=== PATIENT | female | born 1980 | race Caucasian/White ===

== ENCOUNTER 2017-07-31 15:56 | Emergency (ER) | payer MEDICAID, OTHER ==
[~2017-07-31] VITALS: Ht 167.6 cm; Wt 80.0 kg
[~2017-07-31 15:56] MED LIST: FEXO180 PO; LEVO.15 PO; OXYC15TA3 PO
[2017-07-31 16:01] VITALS: BP 183/105; PULSE 133; RESP 16; TEMP 99.2; O2SAT 100
[2017-07-31] MEDS ORDERED: SODIUM CHLOR 0.9% 1000 ML INJ 1,000 ML IV ONE ×2 (16:14→18:15)
[2017-07-31] MEDS ORDERED: ONDANSETRON HCL 4 MG/2 ML VIAL IV PUSH ONE (16:15)
[2017-07-31] MEDS ORDERED: SODIUM CHLORIDE 0.9% FLUSH 10 ML FLUSH IVF PRN (16:15)
[2017-07-31] MEDS ORDERED: KETOROLAC TROMETHAMINE 30 MG/ML (IVP) VIAL IV PUSH ONE (16:15)
--- NOTE | 2017-07-31 16:20 | PD ---
HPI Chief Complaint: Complaint Time Seen by Provider: 16:13 Travel History International Travel<30 days: No Contact w/Intl Traveler<30days: No Traveled to known affect area: No History of Present Illness HPI Patient is 36-year-old female presenting to the emergency department for evaluation of urinary retention, bilateral flank pain, nausea. Patient reports a history of kidney stones diagnosed in April. She reports having a lithotripsy after that with Dr. Travis. She states for the last 24 hours she has been unable to void, she has been utilizing straight cath to empty her bladder. She reports a 7 out of 10 pain in her bilateral flanks and back, she reports abdominal distention. Patient reports nausea with no vomiting, no fevers. Patient states she has had to straight cath on and off since April. Symptom onset was gradual, symptoms are moderate in nature, there are no alleviating factors. Patient has a history of hepatitis C, hypothyroidism, depression anxiety, ADHD and hyperlipidemia. PFSH Past Medical History ADHD: Yes Asthma: Yes ("CHILDHOOD ASTHMA"- USES INHALER PRN-VENTOLIN) Anxiety: Yes Depression: Yes High Cholesterol: Yes Diabetes: No Diminished Hearing: No Hypertension: No Kidney Stones: Yes Thyroid Disease: Yes (HYPOTHYROIDISM) Past Surgical History Genitourinary Surgery: Yes (Lithotripsy) Oral Surgery: Yes (WISDOM TEETH; EXCISION SOFT MASS; EXPLORATION OF GLAND) Social History Alcohol Use: No Tobacco Use: No Substance Use: No (History of IV drug use) Allergies-Medications (Allergen,Severity, Reaction): Coded Allergies: No Known Allergies (Verified , 05/13/10) Reported Meds & Prescriptions Reported Meds & Active Scripts Active Reported Levothyroxine (Levothyroxine Sodium) 200 Mcg Tab 200 Mcg PO DAILY Zofran (Ondansetron HCl) 4 Mg Tab 4 Mg PO Q6HR PRN Fioricet (Cabsxcnhsk-Qscmlsbnhqncm-Phmgtukp) 50-300-40 Mg Cap 1-2 Cap PO Q6H PRN Atorvastatin (Atorvastatin Calcium) 40 Mg Tab 40 Mg PO DAILY Adderall (Amphetamine-Dextroamphetamine) 30 Mg Tab 30 Mg PO BID Avoid late evening doses. Space doses at least 4 to 6 hours if more than once/day dosing. Xanax (Alprazolam) 0.5 Mg Tab 0.5 Mg PO BID PRN Lamictal (Lamotrigine) 100 Mg Tab 100 Mg PO DAILY Lexapro (Escitalopram Oxalate) 10 Mg Tab 10 Mg PO DAILY Mavyret (Glecaprevir-Pibrentasvir) 100-40 Mg Tab 3 Tab PO DAILY Review of Systems Except as stated in HPI: all other systems reviewed are Neg General / Constitutional: No: Fever HENT: No: Headaches Cardiovascular: No: Chest Pain or Discomfort Respiratory: No: Shortness of Breath Gastrointestinal: Positive: Nausea, No: Vomiting, Abdominal Pain Genitourinary: Positive: Dysuria, Decreased Urinary Output, Oliguria, Flank Pain Musculoskeletal: Positive: Myalgias, Pain Neurologic: No: Weakness Physical Exam Narrative GENERAL: Well-developed, well-nourished, alert female. Presenting in no acute distress. SKIN: Warm and dry. HEAD: Atraumatic. Normocephalic. EYES: Pupils equal and round. No scleral icterus. No injection or drainage. ENT: No nasal bleeding or discharge. Mucous membranes pink and moist. NECK: Trachea midline. No JVD. CARDIOVASCULAR: Tachycardic RESPIRATORY: No accessory muscle use. Clear to auscultation. Breath sounds equal bilaterally. GASTROINTESTINAL: Abdomen soft, non-tender, nondistended. Hepatic and splenic margins not palpable. Positive bowel sounds, no rebound, no guarding MUSCULOSKELETAL: Extremities without clubbing, cyanosis, or edema. No obvious deformities. Positive CVAT bilaterally NEUROLOGICAL: Awake and alert. No obvious cranial nerve deficits. Motor grossly within normal limits. Five out of 5 muscle strength in the arms and legs. Normal speech. PSYCHIATRIC: Appropriate mood and affect; insight and judgment normal. Data Data Last Documented VS Vital Signs Date Time Temp Pulse Resp B/P (MAP) Pulse Ox O2 Delivery O2 Flow Rate FiO2 07/31/17 20:15 111 22 169/84 (112) 97 Room Air 07/31/17 16:01 99.2 Orders Orders Complete Blood Count With Diff (07/31/17 16:14) Comprehensive Metabolic Panel (07/31/17 16:14) Urinalysis - C+S If Indicated (07/31/17 16:14) Ct Abd/Pel W/O Iv Contrast (07/31/17 16:14) Ecg Monitoring (07/31/17 16:14) Iv Access Insert/Monitor (07/31/17 16:14) Sodium Chloride 0.9% Flush (Ns Flush) (07/31/17 16:15) Sodium Chlor 0.9% 1000 Ml Inj (Ns 1000 M (07/31/17 16:14) Ketorolac Inj (Toradol Inj) (07/31/17 16:15) Ondansetron Inj (Zofran Inj) (07/31/17 16:15) Urinary Catheter Insert/Apply (07/31/17 16:15) Urine Culture (07/31/17 16:30) Ceftriaxone Inj (Rocephin Inj) (07/31/17 18:00) Tamsulosin (Flomax) (07/31/17 18:00) Sodium Chlor 0.9% 1000 Ml Inj (Ns 1000 M (07/31/17 18:15) Morphine Inj (Morphine Inj) (07/31/17 18:15) Labetalol Inj (Trandate Inj) (07/31/17 20:00) Diphenhydramine Inj (Benadryl Inj) (07/31/17 20:00) Labs Laboratory Tests Test 07/31/17 16:30 07/31/17 17:45 White Blood Count 11.6 TH/MM3 Red Blood Count 5.33 MIL/MM3 Hemoglobin 16.9 GM/DL Hematocrit 48.1 % Mean Corpuscular Volume 90.3 FL Mean Corpuscular Hemoglobin 31.7 PG Mean Corpuscular Hemoglobin Concent 35.1 % Red Cell Distribution Width 12.8 % Platelet Count 373 TH/MM3 Mean Platelet Volume 8.3 FL Neutrophils (%) (Auto) 75.4 % Lymphocytes (%) (Auto) 18.8 % Monocytes (%) (Auto) 5.0 % Eosinophils (%) (Auto) 0.1 % Basophils (%) (Auto) 0.7 % Neutrophils # (Auto) 8.7 TH/MM3 Lymphocytes # (Auto) 2.2 TH/MM3 Monocytes # (Auto) 0.6 TH/MM3 Eosinophils # (Auto) 0.0 TH/MM3 Basophils # (Auto) 0.1 TH/MM3 CBC Comment DIFF FINAL Differential Comment Urine Color YELLOW Urine Turbidity HAZY Urine pH 6.5 Urine Specific [place] 1.029 Urine Protein 300 mg/dL Urine Glucose (UA) NEG mg/dL Urine Ketones NEG mg/dL Urine Occult Blood SMALL Urine Nitrite NEG Urine Bilirubin NEG Urine Urobilinogen 2.0 MG/DL Urine Leukocyte Esterase MOD Urine RBC 67 /hpf Urine WBC 31 /hpf Urine Squamous Epithelial Cells 2 /hpf Urine Calcium Oxalate Crystals FEW /hpf Urine Bacteria OCC /hpf Urine Hyaline Casts 7 /lpf Urine Mucus MANY /lpf Microscopic Urinalysis Comment CULTURE INDICATED Blood Urea Nitrogen 9 MG/DL Creatinine 0.79 MG/DL Random Glucose 103 MG/DL Total Protein 8.5 GM/DL Albumin 4.4 GM/DL Calcium Level 9.0 MG/DL Alkaline Phosphatase 90 U/L Aspartate Amino Transf (AST/SGOT) 17 U/L Alanine Aminotransferase (ALT/SGPT) 26 U/L Total Bilirubin 0.6 MG/DL Sodium Level 138 MEQ/L Potassium Level 4.0 MEQ/L Chloride Level 105 MEQ/L Carbon Dioxide Level 27.6 MEQ/L Anion Gap 5 MEQ/L Estimat Glomerular Filtration Rate 83 ML/MIN MDM Medical Decision Making Medical Screen Exam Complete: Yes Emergency Medical Condition: Yes Interpretation(s) Laboratory Tests Test 07/31/17 16:30 07/31/17 17:45 White Blood Count 11.6 TH/MM3 Red Blood Count 5.33 MIL/MM3 Hemoglobin 16.9 GM/DL Hematocrit 48.1 % Mean Corpuscular Volume 90.3 FL Mean Corpuscular Hemoglobin 31.7 PG Mean Corpuscular Hemoglobin Concent 35.1 % Red Cell Distribution Width 12.8 % Platelet Count 373 TH/MM3 Mean Platelet Volume 8.3 FL Neutrophils (%) (Auto) 75.4 % Lymphocytes (%) (Auto) 18.8 % Monocytes (%) (Auto) 5.0 % Eosinophils (%) (Auto) 0.1 % Basophils (%) (Auto) 0.7 % Neutrophils # (Auto) 8.7 TH/MM3 Lymphocytes # (Auto) 2.2 TH/MM3 Monocytes # (Auto) 0.6 TH/MM3 Eosinophils # (Auto) 0.0 TH/MM3 Basophils # (Auto) 0.1 TH/MM3 CBC Comment DIFF FINAL Differential Comment Urine Color YELLOW Urine Turbidity HAZY Urine pH 6.5 Urine Specific [place] 1.029 Urine Protein 300 mg/dL Urine Glucose (UA) NEG mg/dL Urine Ketones NEG mg/dL Urine Occult Blood SMALL Urine Nitrite NEG Urine Bilirubin NEG Urine Urobilinogen 2.0 MG/DL Urine Leukocyte Esterase MOD Urine RBC 67 /hpf Urine WBC 31 /hpf Urine Squamous Epithelial Cells 2 /hpf Urine Calcium Oxalate Crystals FEW /hpf Urine Bacteria OCC /hpf Urine Hyaline Casts 7 /lpf Urine Mucus MANY /lpf Microscopic Urinalysis Comment CULTURE INDICATED Blood Urea Nitrogen 9 MG/DL Creatinine 0.79 MG/DL Random Glucose 103 MG/DL Total Protein 8.5 GM/DL Albumin 4.4 GM/DL Calcium Level 9.0 MG/DL Alkaline Phosphatase 90 U/L Aspartate Amino Transf (AST/SGOT) 17 U/L Alanine Aminotransferase (ALT/SGPT) 26 U/L Total Bilirubin 0.6 MG/DL Sodium Level 138 MEQ/L Potassium Level 4.0 MEQ/L Chloride Level 105 MEQ/L Carbon Dioxide Level 27.6 MEQ/L Anion Gap 5 MEQ/L Estimat Glomerular Filtration Rate 83 ML/MIN Vital Signs Date Time Temp Pulse Resp B/P (MAP) Pulse Ox O2 Delivery O2 Flow Rate FiO2 07/31/17 16:01 99.2 133 16 183/105 (131) 100 Differential Diagnosis Urinary obstruction versus kidney stones versus UTI versus metabolic abnormality versus other Narrative Course Patient's 36-year-old female that presented to emergency department for evaluation of kidney stones. Patient has a history of the same, she was previously seen and evaluated in [facility]. Patient is mildly hypertensive and tachycardic on arrival. Labs and imaging ordered and pending. Zofran and Toradol ordered for pain. CT shows left proximal ureteral calculus with mild hydronephrosis. Nonobstructing right renal calculi. CBC with a white count 11.6, chemistry is unremarkable urinalysis is consistent with urinary tract infection. Reflex urine cultures pending. Patient was given Rocephin 1 g IV 1 dose, she has received a total of 3 L of IV fluids. Patient was given dose of Flomax. Mother is at bedside, she is concerned that patient is drug seeking. Patient initially stated that she was cleaning however she reported to RN that she is using IV drugs still. Her heart rate has trended down, however she has become more hypertensive. Patient will be given Benadryl, will reassess and if needed. Labetalol has been ordered. Blood pressure and heart rate has normalized. Patient's mother was asked to leave and wait in the waiting room, she was exacerbating patient's anxiety. Leg bag will be left in place due to patient's need to repeatedly self catheter which is likely contributing to urinary tract infections. Patient is encouraged to follow-up with her urologist in 1-2 days. She was encouraged to return to emergency department for any new or worsening symptoms. Patient is stable for discharge. Diagnosis Primary Impression: Kidney stone Additional Impressions: UTI (urinary tract infection) Qualified Codes: N39.0 - Urinary tract infection, site not specified; R31.9 - Hematuria, unspecified Urinary retention Referrals: [facility] Primary Care Physician 2 days [facility] Behavioral Urologist 2 days Patient Instructions: General Instructions, Kidney Stones (ED), Narcotic given in the ED, Urinary Leg Bag (GEN), Urinary Tract Infection in Women (ED) Additional Instructions: Follow-up with your urologist Follow-up with her primary doctor Complete full course of antibiotics as prescribed Increased oral fluid intake Return to emergency department for any new or worsening symptoms Med/Other Pt SpecificInfo: Prescription(s) given Scripts Tamsulosin (Flomax) 0.4 Mg Cap 0.4 MG PO HS for Manage Prostate Problems, #14 CAP 0 Refills Prov: Della Matthews 07/31/17 Ketorolac (Ketorolac) 10 Mg Tab 10 MG PO TID Y for Pain Management, #21 TAB 0 Refills Prov: Della Matthews 07/31/17 Nitrofurantoin Macrocrystal (Macrodantin) 100 Mg Cap 100 MG PO BID for 7 Days, #14 CAP 0 Refills Prov: Della Matthews 07/31/17 Disposition: 01 DISCHARGE HOME Condition: Stable Della Matthews Jul 31, 2017 16:20
[2017-07-31] MEDS ORDERED: ALPR.5 PO (16:38)
[2017-07-31] MEDS ORDERED: LAMO100 PO (16:38)
[2017-07-31] MEDS ORDERED: ZOFR4TAB PO (16:38)
[2017-07-31] MEDS ORDERED: LEVO200T4 PO (16:38)
[2017-07-31] MEDS ORDERED: ATOR40TA16 PO (16:38)
[2017-07-31] MEDS ORDERED: BUTA1CAP PO (16:38)
[2017-07-31] MEDS ORDERED: GLEC1TAB PO (16:38)
[2017-07-31] MEDS ORDERED: ADDE30TA PO (16:38)
[2017-07-31] MEDS ORDERED: LEXA10TA PO (16:38)
[2017-07-31 17:08] LABS: AUTOMATED NEUTROPHIL # 8.7 TH/MM3 (1.8-7.7); BASOPHIL # 0.1 TH/MM3 (0-0.2); BASOPHIL % 0.7 % (0.0-2.0); EOSINOPHIL % 0.1 % (0.0-4.0); HEMATOCRIT 48.1 % (35.0-46.0); HEMOGLOBIN 16.9 GM/DL (11.6-15.3); LYMPH % 18.8 % (9.0-44.0); LYMPHOCYTE # 2.2 TH/MM3 (1.0-4.8); MEAN CELL VOLUME 90.3 FL (80.0-100.0); MEAN CORPUSCULAR HEMOGLOBIN 31.7 PG (27.0-34.0); MEAN CORPUSCULAR HGB CONC 35.1 % (32.0-36.0); MEAN PLATELET VOLUME 8.3 FL (7.0-11.0); MONOCYTE # 0.6 TH/MM3 (0-0.9); NEUT % 75.4 % (16.0-70.0); PLATELET COUNT 373 TH/MM3 (150-450); RED BLOOD COUNT 5.33 MIL/MM3 (4.00-5.30); RED CELL DISTRIBUTION WIDTH 12.8 % (11.6-17.2); WHITE BLOOD COUNT 11.6 TH/MM3 (4.0-11.0)
[2017-07-31 17:34] LABS: BACTERIA, URINE OCC /hpf; BLOOD, URINE SMALL (NEG); CALCIUM OXALATE CRYSTALS,URINE FEW /hpf; GLUCOSE,URINE NEG (NEG); HYALINE CAST, URINE 7 /lpf (RARE); KETONE, URINE NEG (NEG); MUCUS URINE MANY /lpf (OCC); NITRITE,URINE NEG (NEG); PH, URINE 6.5 (5.0-8.5); SQUAMOUS EPITHELIAL CELL URINE 2 /hpf (0-5); URINE COLOR YELLOW (YELLW/STRAW); URINE LEUKOCYTE ESTERASE MOD (NEG)
[2017-07-31 17:35] LABS: BILIRUBIN, URINE NEG (NEG)
--- NOTE | 2017-07-31 17:56 | RADRPT ---
EXAM DATE/TIME: 07/31/2017 17:36 [facility] COMPARISON: No previous studies available for comparison. INDICATIONS : Bilateral flank pain, difficulty urinating. ORAL CONTRAST: No oral contrast ingested. RADIATION DOSE: 8.52 CTDIvol (mGy) MEDICAL HISTORY : Renal calculi. Hypothyroidism. IV drug abuse, asthma. SURGICAL HISTORY : Lithotripsy. ENCOUNTER: Initial ACUITY: 2 days PAIN SCALE: 7/10 LOCATION: Bilateral flank TECHNIQUE: Volumetric scanning of the abdomen and pelvis was performed. Using automated exposure control and ad justment of the mA and/or kV according to patient size, radiation dose was kept as low as reasonably achievable to obtain optimal diagnostic quality images. DICOM format image data is available electro nically for review and comparison. FINDINGS: Patient is status post cholecystectomy. Spleen, pancreas, adrenals are unremarkable. Numerous right-s ided renal calculi are present including a 4.6 mm upper pole calculus, midpole simple 7 mm calculus, nonobstructing. There is no hydronephrosis on the right. On the left, there is mild dilatation of the intrarenal collecting system secondary to a 4.4 mm stone on image 54 at the ureteropelvic junction. Flores catheter within the urinary bladder. Uterus and ovaries are unremarkable. CONCLUSION: 1. Left proximal ureteral calculus with mild hydronephrosis. 2. Nonobstructing right renal calculi. Dave Ospina MD on July 31, 2017 at 17:52 Board Certified Radiologist. This report was verified electronically.
[2017-07-31 18:00] VITALS: BP 174/97; PULSE 119; RESP 20; O2SAT 99
[2017-07-31] MEDS ORDERED: cefTRIAXone INJ 1,000 MG in SODIUM CHLORIDE 0.9% INJ 100 ML IV ONE (18:00)
[2017-07-31] MEDS ORDERED: TAMSULOSIN HCL 0.4 MG CAP PO ONE (18:00)
[2017-07-31] MEDS ORDERED: MORPHINE SULFATE 4 MG/ML INJ IV PUSH ONE (18:15)
[2017-07-31 18:49] LABS: ALBUMIN 4.4 GM/DL (3.4-5.0); ALKALINE PHOSPHATASE 90 U/L (45-117); ALT (GPT) 26 U/L (10-53); AST (GOT) 17 U/L (15-37); BLOOD UREA NITROGEN 9 MG/DL (7-18); CREATININE 0.79 MG/DL (0.50-1.00); GLOMERULAR FILTRATION RATE 83 ML/MIN (>89); GLUCOSE,RANDOM 103 MG/DL (74-106); SODIUM (NA) 138 MEQ/L (136-145); TOTAL BILIRUBIN ADULT 0.6 MG/DL (0.2-1.0); TOTAL PROTEIN 8.5 GM/DL (6.4-8.2)
[2017-07-31 18:50] LABS: BICARBONATE 27.6 MEQ/L (21.0-32.0); CHLORIDE 105 MEQ/L (98-107)
[2017-07-31 19:36] VITALS: BP 199/83; PULSE 118; O2SAT 97
[2017-07-31] MEDS ORDERED: diphenhydrAMINE HCL 50 MG/ML VIAL IV PUSH ONE (20:00)
[2017-07-31] MEDS ORDERED: LABETALOL HCL 100 MG/20 ML VIAL IV PUSH ONE (20:00)
[2017-07-31 20:15] VITALS: BP 169/84; PULSE 111; RESP 22; O2SAT 97
[2017-07-31] MEDS ORDERED: MACR100C3 PO (20:26)
[2017-07-31] MEDS ORDERED: TAMS5CAP PO (20:26)
[2017-07-31] MEDS ORDERED: KETO10 PO (20:26)
== END 2017-07-31 21:22 | disposition home or self-care (01) ==
LOC: NEPE 15:56
DX: N13.2 Hydronephrosis with renal and ureteral calculous obstruction (principal); N39.0 Urinary tract infection, site not specified; E03.9 Hypothyroidism, unspecified; E78.00 Pure hypercholesterolemia, unspecified; F90.9 Attention-deficit hyperactivity disorder, unspecified type; F32.9 Major depressive disorder, single episode, unspecified
CPT/HCPCS: 51702; 74176; 80053; 81001; 85025; 87077; 87086; 87186; 96361; 96365; 96375; 99284; J0696; J1200; J1885; J2270; J2405; J7030

== ENCOUNTER → 2017-08-10 | Day surgery (SDC) | payer OTHER ==
[~2017-08-10] VITALS: Ht 160 cm; Wt 85.7 kg
[~2017-08-10] MED LIST changes: +*morphine SULFATE 10 MG/ML PERIprocedure ONLY ONE; +ADDE30TA PO; +ALPR.5 PO; +ATOR40TA16 PO; +BUTA1CAP PO; +CHLORHEXIDINE GLUCONATE 2 % 1 PACK (2 CLOTHS) TOPICAL PRN; +DEXAMETHASONE SOD PHOS 4 MG/ML VIAL IV ONE; +DO NOT ADM ANY ANTICOAGULANT DRUGS PRN; +FAMOTIDINE 20 MG/2 ML VIAL ONE; -FEXO180 PO; +GLEC1TAB PO; +KETO10 PO; +LACTATED RINGER'S 1000 ML IV PRN; +LAMO100 PO; -LEVO.15 PO; +LEVO200T4 PO; +LEXA10TA PO; +LIDOCAINE HCL 1% PF 5 ML SYRINGE OTHER ONE; +LORazepam 2 MG/ML VIAL IV ONE; +LORazepam 2 MG/ML VIAL ONE; +MACR100C3 PO; +METOPROLOL TARTRATE 25 MG TAB PO PRN; +MIDAZOLAM HCL 2 MG/2 ML VIAL ONE; +ONDANSETRON HCL 4 MG/2 ML VIAL IV ONE; +ONDANSETRON HCL 4 MG/2 ML VIAL IV PUSH PRN; -OXYC15TA3 PO; +PERC5TAB12 PO; +PHENYLEPH/NS 1000 MCG/10 ML SYR IV ONE; +POVIDONE IODINE 5% (ANTISEPSIS KIT) 4 APPLICATIONS EACH NARE PRN; +PROPOFOL 200 MG/20 ML AMP IV ONE; +SODIUM CHLORID 0.9% 500 ML IV PRN; +TAMS0.4C4 PO; +TAMS5CAP PO; +ZOFR4TAB PO; +ePHEDrine/NS 25 MG/5 ML SYRINGE IV ONE; +oxyCODONE/ACETAMINOPHEN 5 MG/325 MG TAB PO PRN
[2017-08-10 06:52] LABS: BASOPHIL # 0.1 TH/MM3 (0-0.2); BASOPHIL % 0.8 % (0.0-2.0); EOSINOPHIL # 0.4 TH/MM3 (0-0.4); EOSINOPHIL % 4.4 % (0.0-4.0); HEMATOCRIT 42.5 % (35.0-46.0); LYMPH % 38.6 % (9.0-44.0); LYMPHOCYTE # 3.3 TH/MM3 (1.0-4.8); MEAN CELL VOLUME 90.3 FL (80.0-100.0); MEAN CORPUSCULAR HEMOGLOBIN 31.9 PG (27.0-34.0); MEAN CORPUSCULAR HGB CONC 35.3 % (32.0-36.0); MEAN PLATELET VOLUME 7.7 FL (7.0-11.0); MONO % 9.4 % (0.0-8.0); MONOCYTE # 0.8 TH/MM3 (0-0.9); NEUT % 46.8 % (16.0-70.0); PLATELET COUNT 340 TH/MM3 (150-450); RED CELL DISTRIBUTION WIDTH 12.8 % (11.6-17.2); WHITE BLOOD COUNT 8.5 TH/MM3 (4.0-11.0)
--- NOTE | 2017-08-10 07:07 | RADRPT ---
EXAM DATE/TIME: 08/10/2017 06:36 [facility] COMPARISON: CT ABDOMEN & PELVIS W/O CONTRAST, July 31, 2017, 17:36. INDICATIONS : Pre op for lithotripsy. MEDICAL HISTORY : Renal calculi. SURGICAL HISTORY : Cholecystectomy. ENCOUNTER: Initial ACUITY: 1 day PAIN SCORE: 0/10 LOCATION: Left abdomen. FINDINGS: Calculus identified in the proximal left ureter cannot be radiographically visualized. Small calculi in the lower pole the right kidney really seen. There are graft her no discrete tract w as seen along the course of ureters within the pelvis or centrally over the bladder. CONCLUSION: Proximal left ureteral calculus not clearly visualized. Right nephrolithiasis. Dutch Dixon MD on August 10, 2017 at 7:02 Board Certified Radiologist. This report was verified electronically.
--- NOTE | 2017-08-10 08:39 | PD.OP ---
Operative Report Date of Surgery: Aug 10, 2017 Preoperative Diagnosis: (1) Ureteral calculus, left Postoperative Diagnosis: (1) Ureteral calculus, left Procedure: Extracorporeal shockwave lithotripsy left ureteral calculus Anesthesia: General Surgeon: Roosevelt Jay Poll Watcher(s): None Operation and Findings: Indication for procedure: Case of a pleasant 36-year-old female with a left proximal ureteral calculus measuring approximately 6 mm who presents now for extracorporeal shockwave lithotripsy. Operative procedure in detail: Patient was brought to the operating room suite placed supine on the lithotripsy table. She was then placed under general anesthesia. After an appropriate timeout was undertaken I proceeded with localizing the patient's left proximal ureteral stone under fluoroscopy. She then underwent extracorporeal shockwave lithotripsy utilizing the mobile delta lithotripsy unit. The patient received a total of 3000 shocks with a maximum power level setting of 6. At the conclusion of the procedure the stone spread out consistent with fragmentation. The patient tolerated the procedure without complications and was transferred to the PACU in satisfactory condition. Roosevelt Jay MD Aug 10, 2017 08:39
[2017-08-10 10:15] VITALS: BP 113/74; PULSE 88; RESP 20; TEMP 98; O2SAT 98
== END | disposition home or self-care (01) ==
LOC: HSDC 05:46
PROVIDERS: ATTEND Urology
DX: N20.1 Calculus of ureter (principal)
CPT/HCPCS: 00873; 50590; 74018; 85025; J1100; J2060; J2250; J2270; J2370; J2405; J3010

== ENCOUNTER 2017-08-25 15:21 | Inpatient (IN) | payer OTHER ==
[~2017-08-25] VITALS: Ht 160 cm; Wt 80.0 kg
[2017-08-25] VITALS (7 sets, daily range): BP systolic 117–150; BP diastolic 72–95; PULSE 96–128; RESP 18–21; TEMP 99; O2SAT 96–99
[~2017-08-25 15:21] MED LIST changes: -*morphine SULFATE 10 MG/ML PERIprocedure ONLY ONE; -CHLORHEXIDINE GLUCONATE 2 % 1 PACK (2 CLOTHS) TOPICAL PRN; -DEXAMETHASONE SOD PHOS 4 MG/ML VIAL IV ONE; -DO NOT ADM ANY ANTICOAGULANT DRUGS PRN; -FAMOTIDINE 20 MG/2 ML VIAL ONE; -KETO10 PO; -LACTATED RINGER'S 1000 ML IV PRN; -LIDOCAINE HCL 1% PF 5 ML SYRINGE OTHER ONE; -LORazepam 2 MG/ML VIAL IV ONE; -LORazepam 2 MG/ML VIAL ONE; -MACR100C3 PO; -METOPROLOL TARTRATE 25 MG TAB PO PRN; -MIDAZOLAM HCL 2 MG/2 ML VIAL ONE; -ONDANSETRON HCL 4 MG/2 ML VIAL IV ONE; -ONDANSETRON HCL 4 MG/2 ML VIAL IV PUSH PRN; -PHENYLEPH/NS 1000 MCG/10 ML SYR IV ONE; -POVIDONE IODINE 5% (ANTISEPSIS KIT) 4 APPLICATIONS EACH NARE PRN; -PROPOFOL 200 MG/20 ML AMP IV ONE; -SODIUM CHLORID 0.9% 500 ML IV PRN; -ePHEDrine/NS 25 MG/5 ML SYRINGE IV ONE; -oxyCODONE/ACETAMINOPHEN 5 MG/325 MG TAB PO PRN
[2017-08-25] MEDS ORDERED: DILTIAZEM HCL 50 MG/10 ML VIAL IV ONE (15:45)
[2017-08-25] MEDS ORDERED: SODIUM CHLORID 0.9% 500 ML INJ 500 ML IV ONE (15:45)
[2017-08-25] MEDS ORDERED: ASPIRIN 325 MG TAB PO ONE (15:45)
--- NOTE | 2017-08-25 15:58 | RADRPT ---
EXAM DATE/TIME: 08/25/2017 15:44 [facility] COMPARISON: No previous studies available for comparison. INDICATIONS : Chest pain and shortness of breath. MEDICAL HISTORY : Renal calculi SURGICAL HISTORY : Cholecystectomy. ENCOUNTER: Initial ACUITY: 1 day PAIN SCORE: 10/10 LOCATION: Bilateral chest FINDINGS: A single view of the chest demonstrates the lungs to be symmetrically aerated without evidence of mas s, infiltrate or effusion. The cardiomediastinal contours are unremarkable. Osseous structures are intact. CONCLUSION: No acute cardiopulmonary disease. José Antonio Silvestre MD on August 25, 2017 at 15:56 Board Certified Radiologist. This report was verified electronically.
--- NOTE | 2017-08-25 15:59 | PD ---
HPI Chief Complaint: Cardiac Complaint Time Seen by Provider: 15:32 Travel History International Travel<30 days: No Contact w/Intl Traveler<30days: No Traveled to known affect area: No History of Present Illness HPI 36-year-old female that presents to the ED for evaluation of elevated heart rate. Per patient she has had sensation of chest pain and pressure with elevated heart rate since today. Per patient she fell diaphoretic. Per patient she had a recent procedure done to remove a kidney stone about a week ago by Dr. Jay. Per patient she is been having pain from it. She apparently was at work today when she developed episode of chest discomfort as well as palpitations. She states that he felt more like a pressure. She felt diaphoretic. She was evaluated by her nurse practitioner who works with her and did an EKG and recognized that she had atrial fibrillation RVR in the 150s 160s. She was given diltiazem with some improvement. She was brought here for evaluation. Per patient she has been having pain on her flank secondary to the recent surgery (lithotripsy). She states that currently she has pressure on her chest. She denies any fevers chills or sweats before. Per patient she self caths when she feels that she has urinary retention and she is concerned she might have a UTI. She denies any history of A. fib in the past. No other medical issues. Pain per patient is 7 out of 10. PFSH Past Medical History ADHD: Yes Asthma: Yes ("CHILDHOOD ASTHMA"- USES INHALER PRN-VENTOLIN) Anxiety: Yes Depression: Yes High Cholesterol: Yes Diabetes: No Diminished Hearing: No Gastrointestinal Disorders: Yes (hep c) Genitourinary: No Hiatal Hernia: No Hypertension: No Kidney Stones: Yes Psychiatric: Yes (mood disorder) Thyroid Disease: Yes (HYPOTHYROIDISM) ?: Not Past Surgical History Abdominal Surgery: Yes (cholecystectomy) Genitourinary Surgery: Yes (Lithotripsy) Gynecologic Surgery: Yes (novasure) Neurologic Surgery: Yes (c3-c4 discectomy) Oral Surgery: Yes (WISDOM TEETH; EXCISION SOFT MASS; EXPLORATION OF GLAND) Other Surgery: Yes Social History Alcohol Use: Yes (OCC) Tobacco Use: Yes Substance Use: No (History of IV drug use) Allergies-Medications (Allergen,Severity, Reaction): Coded Allergies: No Known Allergies (Verified Allergy, Unknown, 08/10/17) Reported Meds & Prescriptions Reported Meds & Active Scripts Active Percocet (Oxycodone-Acetaminophen) 5-325 mg Tab 1-2 Tab PO Q6H PRN Tamsulosin (Tamsulosin HCl) 0.4 Mg Cap 0.4 Mg PO DAILY Flomax (Tamsulosin HCl) 0.4 Mg Cap 0.4 Mg PO HS Reported Suboxone Sublingual Film (Buprenorphine-Naloxone Sublingual Film) 2-0.5 Mg Film Unknown Dose SL Unique ID number required: Adderall (Amphetamine-Dextroamphetamine) 30 Mg Tab 30 Mg PO DAILY Avoid late evening doses. Space doses at least 4 to 6 hours if more than once/day dosing. Levothyroxine (Levothyroxine Sodium) 200 Mcg Tab 200 Mcg PO DAILY Zofran (Ondansetron HCl) 4 Mg Tab 4 Mg PO Q6HR PRN Fioricet (Vsaoatpjuz-Gjyoematbyuun-Exhrcekx) 50-300-40 Mg Cap 1-2 Cap PO Q6H PRN Atorvastatin (Atorvastatin Calcium) 40 Mg Tab 40 Mg PO DAILY Xanax (Alprazolam) 0.5 Mg Tab 0.5 Mg PO BID PRN Lamictal (Lamotrigine) 100 Mg Tab 100 Mg PO DAILY Lexapro (Escitalopram Oxalate) 10 Mg Tab 10 Mg PO DAILY Mavyret (Glecaprevir-Pibrentasvir) 100-40 Mg Tab 3 Tab PO DAILY Review of Systems Except as stated in HPI: all other systems reviewed are Neg Physical Exam Narrative GENERAL: SKIN: Warm and dry. HEAD: Atraumatic. Normocephalic. EYES: Pupils equal and round. No scleral icterus. No injection or drainage. ENT: No nasal bleeding or discharge. Mucous membranes pink and moist. Tongue is midline. No uvula deviation. NECK: Trachea midline. No JVD. CARDIOVASCULAR: Irregular tachycardic rate and rhythm. No murmurs, S3, S4. RESPIRATORY: No accessory muscle use. Clear to auscultation. Breath sounds equal bilaterally. GASTROINTESTINAL: Abdomen soft, non-tender, nondistended. Hepatic and splenic margins not palpable. MUSCULOSKELETAL: Extremities without clubbing, cyanosis, or edema. No obvious deformities. Full range of motion of the upper and lower extremities bilaterally. 2+ pulses bilaterally. NEUROLOGICAL: Awake and alert. No obvious cranial nerve deficits. Motor grossly within normal limits. Five out of 5 muscle strength in the arms and legs. Normal speech. PSYCHIATRIC: Appropriate mood and affect; insight and judgment normal. Data Data Last Documented VS Vital Signs Date Time Temp Pulse Resp B/P (MAP) Pulse Ox O2 Delivery O2 Flow Rate FiO2 08/25/17 18:01 108 19 139/72 (94) 96 Room Air 08/25/17 15:25 99.0 Orders Orders Electrocardiogram (08/25/17 ) Electrocardiogram (08/25/17 15:33) Basic Metabolic Panel (Bmp) (08/25/17 15:33) Ckmb (Isoenzyme) Profile (08/25/17 15:33) Complete Blood Count With Diff (08/25/17 15:33) D-Dimer (08/25/17 15:33) Magnesium (Mg) (08/25/17 15:33) Prothrombin Time / Inr (Pt) (08/25/17 15:33) Act Partial Throm Time (Ptt) (08/25/17 15:33) Troponin I (08/25/17 15:33) Lipase (08/25/17 15:33) Chest, Single Ap (08/25/17 15:33) Ecg Monitoring (08/25/17 15:33) Bilateral Bp Monitoring (08/25/17 15:33) Iv Access Insert/Monitor (08/25/17 15:33) Oximetry (08/25/17 15:33) Oxygen Administration (08/25/17 15:33) Aspirin (Aspirin) (08/25/17 15:45) Sodium Chlorid 0.9% 500 Ml Inj (Ns 500 M (08/25/17 15:45) Ed Urine Pregnancytest Poc (08/25/17 15:33) Ct Abd/Pel W/O Iv Contrast (08/25/17 ) Lactic Acid Sepsis Protocol (08/25/17 15:51) Morphine Inj (Morphine Inj) (08/25/17 16:00) Ondansetron Inj (Zofran Inj) (08/25/17 16:00) Urinalysis - C+S If Indicated (08/25/17 16:01) Cath For Specimen (08/25/17 16:10) Urine Culture (08/25/17 16:07) CKMB (08/25/17 16:09) CKMB% (08/25/17 16:09) Diltiazem Inj (Cardizem Inj) (08/25/17 17:30) Ketorolac Inj (Toradol Inj) (08/25/17 17:30) Ceftriaxone Inj (Rocephin Inj) (08/25/17 17:30) Diltiazem Inj (Cardizem Inj) (08/25/17 15:45) Cath For Specimen (08/25/17 17:30) Admit Order (Ed Use Only) (08/25/17 18:02) Labs Laboratory Tests Test 08/25/17 16:07 08/25/17 16:09 08/25/17 16:12 Urine Color DARK-YELLOW Urine Turbidity CLOUDY Urine pH 6.0 Urine Specific [place] 1.035 Urine Protein 100 mg/dL Urine Glucose (UA) NEG mg/dL Urine Ketones NEG mg/dL Urine Occult Blood MOD Urine Nitrite NEG Urine Bilirubin NEG Urine Urobilinogen 2.0 MG/DL Urine Leukocyte Esterase TRACE Urine RBC 8 /hpf Urine WBC 17 /hpf Urine Squamous Epithelial Cells 31 /hpf Urine Bacteria MOD /hpf Urine Hyaline Casts 79 /lpf Urine Mucus MANY /lpf Microscopic Urinalysis Comment CULTURE INDICATED White Blood Count 10.0 TH/MM3 Red Blood Count 5.18 MIL/MM3 Hemoglobin 16.2 GM/DL Hematocrit 46.1 % Mean Corpuscular Volume 89.0 FL Mean Corpuscular Hemoglobin 31.3 PG Mean Corpuscular Hemoglobin Concent 35.2 % Red Cell Distribution Width 12.8 % Platelet Count 398 TH/MM3 Mean Platelet Volume 8.4 FL Neutrophils (%) (Auto) 57.4 % Lymphocytes (%) (Auto) 29.0 % Monocytes (%) (Auto) 9.9 % Eosinophils (%) (Auto) 3.1 % Basophils (%) (Auto) 0.6 % Neutrophils # (Auto) 5.8 TH/MM3 Lymphocytes # (Auto) 2.9 TH/MM3 Monocytes # (Auto) 1.0 TH/MM3 Eosinophils # (Auto) 0.3 TH/MM3 Basophils # (Auto) 0.1 TH/MM3 CBC Comment DIFF FINAL Differential Comment Prothrombin Time 10.9 SEC Prothromb Time International Ratio 1.1 RATIO Activated Partial Thromboplast Time 29.4 SEC D-Dimer Quantitative (PE/DVT) 0.39 MG/L FEU Blood Urea Nitrogen 11 MG/DL Creatinine 0.83 MG/DL Random Glucose 88 MG/DL Calcium Level 9.5 MG/DL Magnesium Level 2.1 MG/DL Sodium Level 138 MEQ/L Potassium Level 4.5 MEQ/L Chloride Level 105 MEQ/L Carbon Dioxide Level 27.3 MEQ/L Anion Gap 6 MEQ/L Estimat Glomerular Filtration Rate 79 ML/MIN Total Creatine Kinase 253 U/L Creatine Kinase MB 2.6 NG/ML Creatine Kinase MB % 1.0 % Troponin I LESS THAN 0.02 NG/ML Lipase 96 U/L Lactic Acid Level 1.1 mmol/L MDM Medical Decision Making Medical Screen Exam Complete: Yes Emergency Medical Condition: Yes Medical Record Reviewed: Yes Interpretation(s) CBC & BMP Diagram 08/25/17 16:09 Calcium Level 9.5, Magnesium Level 2.1 lactic acid WNL UA shows UTI Last Impressions Chest X-Ray 08/25/17 1533 Signed Impressions: Service Date/Time: July 15:44 - CONCLUSION: No acute cardiopulmonary disease. José Antonio Silvestre MD Abdomen/Pelvis CT 08/25/17 0000 Signed Impressions: Service Date/Time: July 16:17 - CONCLUSION: Stable nonobstructing right kidney stones. Interval passage of a left ureteral stone Jayjay Koenig MD troponin and CKMB negative EKG here shows sinus tachycardia read by me and attending. Differential Diagnosis Tachyarrhythmia versus atrial fibrillation versus sepsis versus kidney stone versus hydronephrosis versus UTI Narrative Course 36-year-old female that presents to the ED for evaluation of possible atrial fib. Patient was properly examined and was found to have signs and symptoms was done to to rule out any sign of sepsis or hydronephrosis from the procedure done recently. Patient was started on diltiazem here. Patient was given aspirin and pain medication. Labs and imaging here showed what appears to be tachycardia. Patient does appear to be going in and out of atrial fibrillation. For the most part patient has been very tachycardic the whole time she has been here. She is than 120s 130s. Urine did show signs of infection. Patient does have a kidney stone on the right kidney but not actually moving. Patient complains of a lot of pain to her right kidney. Allegedly the patient overheard the ED nurse talking with EVAC while she was in the room about her medical complaints and got upset at nurse also secondary to delay she had with receiving medications. Charge nurse and attending where aware of situation and got involved in care. Per report ED nurse and charge nurse the delay on medications was secondary to pharmacy and patient not being properly registered. Again ED charge nurse was involved and problem was resolved. I do recommend admission for further evaluation. She agrees with this. My attending evaluated her and recommend patient be started on diltiazem drip secondary to atrial fibrillation and continues tachyarrhythmia. Antibiotics IV started. Case discussed with Dr Jaime who agrees with admission. Diagnosis Primary Impression: Atrial fibrillation with RVR Additional Impressions: UTI (urinary tract infection) Qualified Codes: N30.00 - Acute cystitis without hematuria Acute flank pain Admitting Information Admitting Physician Requests: Admit Eliseo Seay Aug 25, 2017 15:59
[2017-08-25] MEDS ORDERED: ONDANSETRON HCL 4 MG/2 ML VIAL IV PUSH ONE (16:00)
[2017-08-25] MEDS ORDERED: MORPHINE SULFATE 2 MG/ML SYRINGE IV PUSH ONE (16:00)
[2017-08-25 16:34] LABS: AUTOMATED NEUTROPHIL # 5.8 TH/MM3 (1.8-7.7); BASOPHIL # 0.1 TH/MM3 (0-0.2); BASOPHIL % 0.6 % (0.0-2.0); EOSINOPHIL # 0.3 TH/MM3 (0-0.4); EOSINOPHIL % 3.1 % (0.0-4.0); HEMATOCRIT 46.1 % (35.0-46.0); HEMOGLOBIN 16.2 GM/DL (11.6-15.3); LYMPHOCYTE # 2.9 TH/MM3 (1.0-4.8); MEAN CORPUSCULAR HEMOGLOBIN 31.3 PG (27.0-34.0); MEAN CORPUSCULAR HGB CONC 35.2 % (32.0-36.0); MEAN PLATELET VOLUME 8.4 FL (7.0-11.0); MONO % 9.9 % (0.0-8.0); NEUT % 57.4 % (16.0-70.0); PLATELET COUNT 398 TH/MM3 (150-450); RED BLOOD COUNT 5.18 MIL/MM3 (4.00-5.30); RED CELL DISTRIBUTION WIDTH 12.8 % (11.6-17.2)
--- NOTE | 2017-08-25 16:40 | RADRPT ---
EXAM DATE/TIME: 08/25/2017 16:17 [facility] COMPARISON: CT ABDOMEN & PELVIS W/O CONTRAST, July 31, 2017, 17:36. CT ABDOMEN & PELVIS W CONTRAST, August 14 010, 0:28. INDICATIONS : Right flank pain ORAL CONTRAST: No oral contrast ingested. RADIATION DOSE: 13.91 CTDIvol (mGy) MEDICAL HISTORY : Renal calculi. Hepatitis C. Asthma SURGICAL HISTORY : Cholecystectomy. ENCOUNTER: Initial ACUITY: 1 day PAIN SCALE: 8/10 LOCATION: Right flank TECHNIQUE: Volumetric scanning of the abdomen and pelvis was performed. Using automated exposure control and ad justment of the mA and/or kV according to patient size, radiation dose was kept as low as reasonably achievable to obtain optimal diagnostic quality images. DICOM format image data is available electro nically for review and comparison. FINDINGS: LOWER LUNGS: The visualized lower lungs are clear. LIVER: Visualized portions are grossly unremarkable. SPLEEN: Normal size without lesion. PANCREAS: Within normal limits. KIDNEYS: There no obstructing stones present in the posterior midpole and in the lower pole collecting system of the right kidney with a 4 mm stone in the midpole and an 8-9 mm stone in the lower pole. No stones are present on the left. There is no evidence of hydronephrosis. No ureteral stones are appreciated. ADRENAL GLANDS: Within normal limits. VASCULAR: There is no aortic aneurysm. BOWEL/MESENTERY: The stomach, small bowel, and colon demonstrate no acute abnormality. There is no free intraperitone al air or fluid. ABDOMINAL WALL: Within normal limits. RETROPERITONEUM: There is minimally prominent para-aortic lymph nodes just below the level the renal vessels. These ar e stable. BLADDER: No wall thickening or mass. REPRODUCTIVE: Within normal limits. INGUINAL: There is no lymphadenopathy or hernia. MUSCULOSKELETAL: Within normal limits for patient age. CONCLUSION: Stable nonobstructing right kidney stones. Interval passage of a left ureteral stone Jayjay Koenig MD on August 25, 2017 at 16:28 Board Certified Radiologist. This report was verified electronically.
[2017-08-25 16:45] LABS: INTERNATIONAL NORMALIZED RATIO 1.1 RATIO; PROTHROMBIN TIME - PATIENT 10.9 SEC (9.8-11.6)
[2017-08-25 16:46] LABS: D-DIMER 0.39 MG/L FEU (0.00-0.50)
[2017-08-25 16:47] LABS: BACTERIA, URINE MOD /hpf; BILIRUBIN, URINE NEG (NEG); BLOOD, URINE MOD (NEG); GLUCOSE,URINE NEG (NEG); HYALINE CAST, URINE 79 /lpf (RARE); KETONE, URINE NEG (NEG); MUCUS URINE MANY /lpf (OCC); NITRITE,URINE NEG (NEG); SQUAMOUS EPITHELIAL CELL URINE 31 /hpf (0-5); URINE COLOR DARK-YELLOW (YELLW/STRAW); URINE LEUKOCYTE ESTERASE TRACE (NEG)
[2017-08-25 17:07] LABS: BICARBONATE 27.3 MEQ/L (21.0-32.0); BLOOD UREA NITROGEN 11 MG/DL (7-18); CALCIUM 9.5 MG/DL (8.5-10.1); CHLORIDE 105 MEQ/L (98-107); CREATININE 0.83 MG/DL (0.50-1.00); GLOMERULAR FILTRATION RATE 79 ML/MIN (>89); GLUCOSE,RANDOM 88 MG/DL (74-106); MAGNESIUM 2.1 MG/DL (1.5-2.5); SODIUM (NA) 138 MEQ/L (136-145); TROPONIN I LESS THAN 0.02 NG/ML (0.02-0.05)
[2017-08-25] MEDS ORDERED: SUBO2MIS SL (17:13)
[2017-08-25] MEDS ORDERED: KETOROLAC TROMETHAMINE 30 MG/ML (IVP) VIAL IV PUSH ONE (17:30)
[2017-08-25] MEDS ORDERED: cefTRIAXone INJ 1,000 MG in SODIUM CHLORIDE 0.9% INJ 100 ML IV ONE (17:30)
[2017-08-25] MEDS ORDERED: DILTIAZEM INJ 125 MG in SODIUM CHLORIDE 0.9% INJ 100 ML IV PRN (17:30)
[2017-08-25] MEDS ORDERED: SODIUM CHLORIDE 0.9% FLUSH 10 ML FLUSH IV FLUSH PRN ×2 (18:15→19:15)
[2017-08-25] MEDS ORDERED: HYDROmorphone HCL PF 2 MG/ML VIAL IV PUSH ONE (19:00)
[2017-08-25] MEDS: SODIUM CHLOR 0.9% 1000 ML INJ 1,000 ML IV SCH ×2 (19:06→22:23)
[2017-08-25] MEDS ORDERED: BISACODYL 10 MG SUPP RECTAL PRN (19:15)
[2017-08-25] MEDS ORDERED: MAGNESIUM HYDROXIDE SUSP 30 ML CUP PO PRN (19:15)
[2017-08-25] MEDS ORDERED: LACTULOSE SYRUP 20 GM/30 ML CUP PO PRN (19:15)
[2017-08-25] MEDS ORDERED: MORPHINE SULFATE 2 MG/ML SYRINGE IV PUSH PRN (19:15)
[2017-08-25] MEDS ORDERED: ACETAMIN 325 MG/BUTALBITAL 50 MG/CAFFEINE 40 MG TAB PO PRN (19:15)
[2017-08-25] MEDS ORDERED: ACETAMINOPHEN/HYDROcodone 325 MG/5 MG TAB PO PRN (19:15)
[2017-08-25] MEDS ORDERED: ALPRAZolam 0.5 MG TAB PO PRN (19:15)
[2017-08-25] MEDS ORDERED: SENNOSIDES 8.6 MG TAB PO PRN (19:15)
[2017-08-25] MEDS ORDERED: ACETAMINOPHEN 325 MG TAB PO PRN (19:15)
[2017-08-25] MEDS ORDERED: ONDANSETRON HCL 4 MG/2 ML VIAL IVP PRN (19:15)
--- NOTE | 2017-08-25 19:29 | HHI.HP ---
HPI Service [facility] Primary Care Physician Amanda Godfrey MD Admission Diagnosis atrial fibrillation in RVR, UTI, recent lithotripsy Diagnoses: (1) Atrial fibrillation with RVR Diagnosis: Principal (2) Intractable pain Diagnosis: Principal (3) Renal stone Diagnosis: Principal (4) UTI (urinary tract infection) Diagnosis: Principal (5) Chest pain Diagnosis: Principal (6) Hepatitis C Diagnosis: Principal Travel History International Travel<30 Days: No Contact w/Intl Traveler <30 Da: No Traveled to Known Affected Are: No History of Present Illness This is a 36-year-old female with a PMH of Anxiety, Depression, ADHD, Hepatitis C, Hyperlipidemia and h/o IVDU who was brought to the ER by EMS secondary to A- fib w/ RVR. Pt states she was at work and had acute onset of chest pain, palpitations and flank pain. Has been following w/ Dr. Jay for renal stone and called office, told to come to ER for further evaluation. 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 Upon EMS arrival, pt noted to be in A-fib w/ RVR, HR 150, s/p Cardizem IV en route. No h/o A-fib. Denies drug use. Reports persistent chest and flank pain, severe, constant, 10/10, non- radiating. On arrival, BP 136/91, HR 128, O2 sat 99% on RA, Temp 99.0. CBC essentially unremarkable. Chemistry unremarkable except for GFR 79. CPK 253. Troponin negative. INR 1.1. D-dimer negative. UA positive for UTI. CXR with no acute findings. CT Abdomen/Pelvis was stable nonobstructing right kidney stones, interval passage of left ureteral stone. Currently on Cardizem gtt. Review of Systems Except as stated in HPI: all other systems reviewed are Neg ROS: 14 point review of systems otherwise negative. Past Family Social History Past Medical History PMH: Anxiety, Depression, ADHD, Hepatitis C, Hyperlipidemia and h/o IVDU Past Surgical History PAST SURGICAL HISTORY: Cholecystectomy, Lithotripsy, C3-C4 Discectomy, Dental Extraction Allergies: Coded Allergies: No Known Allergies (Verified Allergy, Unknown, 08/10/17) Family History PAST FAMILY HISTORY: Reviewed. No h/o DM or CAD Social History PAST SOCIAL HISTORY: Occasional alcohol. Positive for tobacco. History of IVDU Physical Exam Vital Signs Vital Signs Date Time Temp Pulse Resp B/P (MAP) Pulse Ox O2 Delivery O2 Flow Rate FiO2 08/25/17 19:18 115 20 143/84 (103) 97 Room Air 08/25/17 19:00 105 20 139/72 (94) 99 Room Air 08/25/17 18:20 120 139/72 08/25/17 18:01 108 19 139/72 (94) 96 Room Air 08/25/17 15:35 128 21 136/91 (106) 99 Room Air 08/25/17 15:25 99.0 96 18 139/83 (101) 98 Physical Exam PE: GENERAL: Middle-aged white female moderate distress due to pain, crying, anxious HEENT: PERRLA, EOMI. No scleral icterus or conjunctival pallor. No lid lag or facial droop. CARDIOVASCULAR: Irregularly irregular, and A. fib. No obvious murmurs to auscultation. No chest tenderness to palpation. RESPIRATORY: No obvious rhonchi or wheezing. Clear to auscultation. Breath sounds equal bilaterally. GASTROINTESTINAL: Abdomen soft, non-tender, nondistended. BS normal. MUSCULOSKELETAL: Extremities without clubbing, cyanosis, or edema. No obvious deformities. NEUROLOGICAL: Awake, alert and oriented x4. No focal neurologic deficits. Moving both upper and lower extremities spontaneously. Laboratory Laboratory Tests Test 08/25/17 16:07 08/25/17 16:09 08/25/17 16:12 Urine Color DARK-YELLOW Urine Turbidity CLOUDY Urine pH 6.0 Urine Specific [place] 1.035 Urine Protein 100 Urine Glucose (UA) NEG Urine Ketones NEG Urine Occult Blood MOD Urine Nitrite NEG Urine Bilirubin NEG Urine Urobilinogen 2.0 Urine Leukocyte Esterase TRACE Urine RBC 8 Urine WBC 17 Urine Squamous Epithelial Cells 31 Urine Bacteria MOD Urine Hyaline Casts 79 Urine Mucus MANY Microscopic Urinalysis Comment CULTURE INDICATED White Blood Count 10.0 Red Blood Count 5.18 Hemoglobin 16.2 Hematocrit 46.1 Mean Corpuscular Volume 89.0 Mean Corpuscular Hemoglobin 31.3 Mean Corpuscular Hemoglobin Concent 35.2 Red Cell Distribution Width 12.8 Platelet Count 398 Mean Platelet Volume 8.4 Neutrophils (%) (Auto) 57.4 Lymphocytes (%) (Auto) 29.0 Monocytes (%) (Auto) 9.9 Eosinophils (%) (Auto) 3.1 Basophils (%) (Auto) 0.6 Neutrophils # (Auto) 5.8 Lymphocytes # (Auto) 2.9 Monocytes # (Auto) 1.0 Eosinophils # (Auto) 0.3 Basophils # (Auto) 0.1 CBC Comment DIFF FINAL Differential Comment Prothrombin Time 10.9 Prothromb Time International Ratio 1.1 Activated Partial Thromboplast Time 29.4 D-Dimer Quantitative (PE/DVT) 0.39 Blood Urea Nitrogen 11 Creatinine 0.83 Random Glucose 88 Calcium Level 9.5 Magnesium Level 2.1 Sodium Level 138 Potassium Level 4.5 Chloride Level 105 Carbon Dioxide Level 27.3 Anion Gap 6 Estimat Glomerular Filtration Rate 79 Total Creatine Kinase 253 Creatine Kinase MB 2.6 Creatine Kinase MB % 1.0 Troponin I LESS THAN 0.02 Lipase 96 Lactic Acid Level 1.1 Date/Time Source Procedure Growth Status 08/25/17 16:07 Urine Clean Catch Urine Culture Pending Received Result Diagram: 08/25/17 1609 08/25/17 1609 Caprini VTE Risk Assessment Caprini VTE Risk Assessment: No/Low Risk (score <= 1) Caprini Risk Assessment Model Point Value = 1 Point Value = 2 Point Value = 3 Point Value = 5 Age 41-60 Minor surgery BMI > 25 kg/m2 Swollen legs Varicose veins or History of unexplained or recurrent spontaneous Oral contraceptives or hormone replacement Sepsis (< 1 month) Serious lung disease, including pneumonia (< 1 month) Abnormal pulmonary function Acute myocardial infarction Congestive heart failure (< 1 month) History of inflammatory bowel disease Medical patient at bed rest Age 61-74 Arthroscopic surgery Major open surgery (> 45 min) Laparoscopic surgery (> 45 min) Malignancy Confined to bed (> 72 hours) Immobilizing plaster cast Central venous access Age >= 75 History of VTE Family history of VTE Factor V Leiden Prothrombin [id number] Lupus anticoagulant Anticardiolipin antibodies Elevated serum homocysteine Heparin-induced thrombocytopenia Other congenital or acquired thrombophilia Stroke (< 1 month) Elective arthroplasty Hip, pelvis, or leg fracture Acute spinal cord injury (< 1 month) Prophylaxis Regimen Total Risk Factor Score Risk Level Prophylaxis Regimen 0-1 Low Early ambulation 2 Moderate Order ONE of the following: *Sequential Compression Device (SCD) *Heparin 5000 units SQ BID 3-4 Higher Order ONE of the following medications: *Heparin 5000 units SQ TID *Enoxaparin/Lovenox 40 mg SQ daily (WT < 150 kg, CrCl > 30 mL/min) *Enoxaparin/Lovenox 30 mg SQ daily (WT < 150 kg, CrCl > 10-29 mL/min) *Enoxaparin/Lovenox 30 mg SQ BID (WT < 150 kg, CrCl > 30 mL/min) AND/OR *Sequential Compression Device (SCD) 5 or more Highest Order ONE of the following medications: *Heparin 5000 units SQ TID (Preferred with Epidurals) *Enoxaparin/Lovenox 40 mg SQ daily (WT < 150 kg, CrCl > 30 mL/min) *Enoxaparin/Lovenox 30 mg SQ daily (WT < 150 kg, CrCl > 10-29 mL/min) *Enoxaparin/Lovenox 30 mg SQ BID (WT < 150 kg, CrCl > 30 mL/min) AND *Sequential Compression Device (SCD) Assessment and Plan Problem List: (1) Atrial fibrillation with RVR ICD Code: I48.91 - Unspecified atrial fibrillation Status: Acute (2) Chest pain ICD Code: R07.9 - Chest pain, unspecified (3) Renal stone ICD Code: N20.0 - Calculus of kidney (4) Intractable pain ICD Code: R52 - Pain, unspecified (5) UTI (urinary tract infection) ICD Code: N39.0 - Urinary tract infection, site not specified Status: Acute (6) Hepatitis C ICD Code: B19.20 - Unspecified viral hepatitis C without hepatic coma Assessment and Plan A/P: 1. A-fib w/ RVR: New-onset. Noted to be in A-fib w/ RVR, HR 150's, no h/o A- fib. Currently on Cardizem gtt. Admit to [facility], telemetry, continue Cardizem, check Echo to eval for valvular abnormality, consult Cardiology for further recommendations. 2. Chest Pain: likely secondary to A-fib/Anxiety. Initial trop negative. Check serial cardiac enzymes, telemetry. ASA, Statin. Check Urine Drug Screen. 3. Renal Stone: following w/ Dr. Jay, reports 10/10 flank pain, CT Abd/ Pelvis w/ non obstructing right stone, passage of left stone, images reviewed by me. Will consult Dr. Jay for further evaluation. Analgesics/ antiemetics as needed. 4. UTI: U/a w/ UTI. Rocephin IV, IVF, follow up urine cultures. 5. Intractable Pain: Secondary to above. Reports minimal improvement after Dilaudid, h/o IVDU, caution w/ narcotics. 6. Hepatitis C: Chronic. On Mavyret 3tabs qd at 3pm, non-formulary, may take own medications. 7. DVT Prophylaxis: SCD/Teds. 8. Social work for d/c planning as needed. 9. Case discussed w/ ER physician at length, labs/records/imaging reviewed by me. Physician Certification 2 Midnight Certification Type: Admission for Inpatient Services Order for Inpatient Services The services are ordered in accordance with Medicare regulations or non- Medicare payer requirements, as applicable. In the case of services not specified as inpatient-only, they are appropriately provided as inpatient services in accordance with the 2-midnight benchmark. Estimated LOS (days): 2 days is the estimated time the patient will need to remain in the hospital, assuming treatment plan goals are met and no additional complications. Post-Hospital Plan: Not yet determined Problem Qualifiers (1) UTI (urinary tract infection): Qualified Codes: N30.00 - Acute cystitis without hematuria Kailey Garcia MD Aug 25, 2017 19:29
[2017-08-25] MEDS: DOCUSATE SODIUM 50 MG/SENNA 8.6 MG TAB PO SCH (21:00)
[2017-08-25] MEDS ORDERED: SODIUM CHLORIDE 0.9% FLUSH 10 ML FLUSH IV FLUSH SCH (21:00)
[2017-08-25] MEDS ORDERED: TAMSULOSIN HCL 0.4 MG CAP PO SCH (21:00)
[2017-08-25] MEDS: SODIUM CHLORIDE 0.9% FLUSH 10 ML FLUSH IV FLUSH SCH (21:00)
[2017-08-25] MEDS: HYDROmorphone HCL PF 2 MG/ML VIAL IV PUSH PRN (21:07)
[2017-08-26] MEDS ORDERED: DILTIAZEM INJ 125 MG in SODIUM CHLORIDE 0.9% INJ 100 ML IV PRN (00:45)
[2017-08-26] MEDS: HYDROmorphone HCL PF 2 MG/ML VIAL IV PUSH PRN ×3 (00:56→09:03)
[2017-08-26] MEDS: LORazepam 2 MG/ML VIAL IV PUSH PRN ×2 (00:57→04:12)
[2017-08-26 01:08] VITALS: BP 112/66; PULSE 86; RESP 18; O2SAT 96
[2017-08-26 02:38] VITALS: BP 107/53; PULSE 103; RESP 18; O2SAT 96
[2017-08-26 04:10] VITALS: BP 122/71; PULSE 96; RESP 18; O2SAT 96
[2017-08-26 04:59] LABS: ALBUMIN 3.8 GM/DL (3.4-5.0); ALT (GPT) 36 U/L (10-53); AST (GOT) 28 U/L (15-37); BICARBONATE 25.9 MEQ/L (21.0-32.0); BLOOD UREA NITROGEN 17 MG/DL (7-18); CALCIUM 8.8 MG/DL (8.5-10.1); CHLORIDE 107 MEQ/L (98-107); GLOMERULAR FILTRATION RATE 82 ML/MIN (>89); GLUCOSE,RANDOM 97 MG/DL (74-106); SODIUM (NA) 139 MEQ/L (136-145)
[2017-08-26 05:03] LABS: ALKALINE PHOSPHATASE 103 U/L (45-117); TOTAL BILIRUBIN ADULT 0.8 MG/DL (0.2-1.0); TOTAL PROTEIN 8.1 GM/DL (6.4-8.2); TROPONIN I LESS THAN 0.02 NG/ML (0.02-0.05)
[2017-08-26 06:00] VITALS: PULSE 75; RESP 14; O2SAT 96
[2017-08-26 07:30] LABS: AUTOMATED NEUTROPHIL # 3.2 TH/MM3 (1.8-7.7); BASOPHIL % 0.5 % (0.0-2.0); EOSINOPHIL # 0.6 TH/MM3 (0-0.4); EOSINOPHIL % 8.1 % (0.0-4.0); HEMATOCRIT 39.1 % (35.0-46.0); HEMOGLOBIN 13.7 GM/DL (11.6-15.3); LYMPH % 35.2 % (9.0-44.0); LYMPHOCYTE # 2.5 TH/MM3 (1.0-4.8); MEAN CORPUSCULAR HEMOGLOBIN 31.2 PG (27.0-34.0); MEAN CORPUSCULAR HGB CONC 35.1 % (32.0-36.0); MEAN PLATELET VOLUME 8.6 FL (7.0-11.0); MONO % 10.3 % (0.0-8.0); MONOCYTE # 0.7 TH/MM3 (0-0.9); NEUT % 45.9 % (16.0-70.0); PLATELET COUNT 302 TH/MM3 (150-450); RED BLOOD COUNT 4.39 MIL/MM3 (4.00-5.30); RED CELL DISTRIBUTION WIDTH 12.7 % (11.6-17.2); WHITE BLOOD COUNT 7.1 TH/MM3 (4.0-11.0)
[2017-08-26] MEDS: SODIUM CHLORIDE 0.9% FLUSH 10 ML FLUSH IV FLUSH SCH (07:47)
[2017-08-26] MEDS: SODIUM CHLOR 0.9% 1000 ML INJ 1,000 ML IV SCH (07:47)
[2017-08-26 07:48] VITALS: BP 113/64; PULSE 72; RESP 18; O2SAT 97
[2017-08-26] MEDS: DOCUSATE SODIUM 50 MG/SENNA 8.6 MG TAB PO SCH (08:52)
[2017-08-26] MEDS ORDERED: GLECAPREVIR PIBRENTASVIR PO SCH (09:00)
[2017-08-26] MEDS ORDERED: lamoTRIgine 100 MG TAB PO SCH (09:00)
[2017-08-26] MEDS ORDERED: ESCITALOPRAM OXALATE 10 MG TAB PO SCH (09:00)
[2017-08-26] MEDS ORDERED: DEXTROAMPHETAMINE/AMPHETAMINE 30 MG TAB PO SCH (09:00)
[2017-08-26] MEDS ORDERED: ASPIRIN EC 81 MG TABEC PO SCH (09:00)
[2017-08-26] MEDS ORDERED: ATORVASTATIN 40 MG TAB PO SCH (09:00)
--- NOTE | 2017-08-26 10:44 | MB ---
cc: Eric Swift MD DATE: 08/26/2017 REASON FOR CONSULTATION: Evaluation of chest pain and tachycardia. HISTORY OF PRESENT ILLNESS: Yanely Le is a 36-year-old woman with a complicated history. She has hepatitis C. 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 She is on chronic Adderall for depression. She smokes a pack a day. She apparently works as a nurse's aide, was at work and describes a feeling of increased heart rate, chest pain, diaphoresis and tremendous pain in her right flank. She has known kidney stones. She just had lithotripsy of a left ureteral stone on 08/10/2017 and has persistent stones in the right kidney. She had pressure in the chest when she arrived in the ER. Troponins have been checked x3 and have been negative. Initially she had sinus tachycardia. I have reviewed all the strips available on the telemetry computer as well as her EKG and I do not see any atrial fibrillation. She was treated with Cardizem, but that was stopped apparently last night. She has no chest pain this morning. PAST MEDICAL HISTORY: Includes intravenous drug use, depression, mood disorder, childhood asthma, hepatitis C, hypothyroidism, anxiety, depression, kidney stones. PAST SURGICAL HISTORY: Includes cholecystectomy, lithotripsy C3-C4 discectomy, wisdom teeth removal. FAMILY HISTORY: Positive for heart disease in that her mother has had a heart attack. Father apparently is alive and well. REVIEW OF SYSTEMS: Otherwise noncontributory. PHYSICAL EXAMINATION: GENERAL: Obese, anxious, white female in no acute distress. VITAL SIGNS: Charted. HEENT: Unremarkable. NECK: No JVD. No bruits. CHEST: Clear to auscultation. CARDIAC EXAM: S1, S2. Regular rate and rhythm. No murmurs, rubs or gallops. ABDOMEN: Obese, soft, nontender. EXTREMITIES: No clubbing, cyanosis or edema. DATA: A 2-D echo Doppler done at the bedside was being performed while I was here and that looks normal. EKG shows sinus tachycardia, no ischemic changes. Troponins negative. ASSESSMENT: The patient has had significant sinus tachycardia. She has multiple reasons to have sinus tachycardia, between use of Adderall, heavy smoking, heavy caffeine use, obesity will all contribute to tachycardia. The chest pain lasted for hours with no troponin changes or ST changes. I think she has evidence for passing a left ureteral stone and has a right kidney stone. Some of the chest pain could be referred from that. She does have significant cardiac risk factors with family history, and high cholesterol and obesity. She has hematuria at the present time. RECOMMENDATIONS: At this point I think the best treatment strategy would be to completely discontinue Adderall immediately, completely quit smoking immediately, eliminate her caffeine use or severely curtail it. I do not want to place her on anticoagulation with her having hematuria and passing kidney stone. Would manage the chest pain conservatively now for that reason. If it continues, she will need further cardiac workup. Currently, there is no objective evidence of any cardiac problem. Thank you for asking me to see her. MD PIERRE Adler/HAYES , 10:23 AM , 10:42 AM
--- NOTE | 2017-08-26 11:39 | EKG ---
Date Performed: 08/25/2017 Time Performed: 15:45:17 PTAGE: 36 years EKG: SINUS TACHYCARDIA ABNORMAL RHYTHM ECG PREVIOUS TRACING : 11/15/2004 01.40 Since the previous tracing, no significant change noted DOCTOR: José Antonio Salcido Interpretating Date/Time 08/26/2017 11:33:13
--- NOTE | 2017-08-26 12:06 | MB ---
cc: Winston Estevez DO DATE: 08/26/2017 DATE OF CONSULTATION: 08/26/2017. HISTORY OF PRESENT ILLNESS: Mr. Le is a 36-year-old female who presented with complaints of abdominal pain with a history of nephrolithiasis. She is followed by Dr. Jay who instructed her to come to the emergency room due to her pain. A CT scan was performed in the Emergency Room which demonstrated 2 nonobstructing stones within the mid pole and lower pole collecting system in the right kidney. Stones there, measure a 4 mm mid pole stone and an 8 mm right lower pole stone. There are no stones on the left side. There is no evidence of any hydronephrosis on either side and no ureteral stones were identified. The patient was found to have rapid atrial fibrillation on an EKG on admission and cardiology was to be consulted. Troponins were negative. D-dimer was negative. PAST MEDICAL HISTORY: Noted for nephrolithiasis, anxiety, depression, ADHD, hepatitis C, and hyperlipidemia and nephrolithiasis. PAST SURGICAL HISTORY: Noted for cholecystectomy, lithotripsy, C3-C4 diskectomy, dental extraction. ALLERGIES: SHE HAS NO KNOWN DRUG ALLERGIES. FAMILY HISTORY: No history of diabetes or coronary artery disease, but there is a history of anxiety. SOCIAL HISTORY: Occasional alcohol. Positive for tobacco history. REVIEW OF SYSTEMS: Notes abdominal pain, appears anxious, some shortness of breath is noted at times. Denies bleeding disorders or gait disorders. Denies diarrhea or constipation. Denies dysuria. She does report chest pain. The remaining review of systems were reviewed and were negative. PHYSICAL EXAMINATION: VITAL SIGNS: Temperature is 99.0, heart rate 72, respiratory rate 18, 113/84, blood pressure, 97% on room air. GENERAL: She is a well-developed, well-nourished 36-year-old female in moderate distress. HEENT: Normocephalic, atraumatic. Pupils equal, round, regular and reactive to light. Extraocular movements intact. NECK: Supple. HEART: Regular rate and rhythm at present. LUNGS: Clear bilaterally. ABDOMEN: Soft, nontender, nondistended. There is no CVA tenderness at the present time. PELVIC: Normal female external genitalia is noted. EXTREMITIES: Show no evidence of cyanosis, clubbing, or edema. NEUROLOGIC: Cranial nerves 2-12 are intact. LABORATORY DATA: White count 7.1, hemoglobin 13.7, hematocrit 39.1, platelet count 302. Sodium 139, potassium 4.0, chloride 107, CO2 25.9, BUN of 17, creatinine 0.8, glucose of 97. Urinalysis shows 8 red cells and 17 white cells, trace leukocyte esterase is noted. Culture is currently pending. IMAGING STUDIES: Again shows 2 nonobstructing stones within the right mid pole and right lower pole of the kidney, largest being 8-9 mm right lower pole stone. No hydronephrosis is noted. No other stones were identified. ASSESSMENT AND PLAN: This is a 36-year-old female with a history of nephrolithiasis with 2 nonobstructing right kidney stones without causing any obstruction. No intervention required at this time emergently. Recommend followup in the office with Dr. Jay and to be scheduled for outpatient lithotripsy in the future. Thank you for the consult and allowing me to participate in the care of this patient. DO CHAO Carpenter/JOSHUA , 11:45 AM , 12:04 PM
--- NOTE | 2017-08-26 13:53 | ECHRPT ---
Indication: atrial fib CONCLUSIONS The left ventricular systolic function is normal with an estimated ejection fraction in the range of 65-70%. Normal left ventricular size. Wall thickness is normal. No regional wall motion abnormalities are present. There is trace tricuspid valve regurgitation. Normal estimated pulmonary pressures. BP: / HR: Rhythm: Sinus MEASUREMENTS (Male / Female) Normal Values Technical Quality:Good 2D ECHO LV Diastolic Diameter PLAX 4.0 cm 4.2 - 5.9 / 3.9 - 5.3 cm LV Systolic Diameter PLAX 2.6 cm IVS Diastolic Thickness 1.1 cm 0.6 - 1.0 / 0.6 - 0.9 cm LVPW Diastolic Thickness 1.1 cm 0.6 - 1.0 / 0.6 - 0.9 cm LV Relative Wall Thickness 0.5 RV Internal Dim ED PLAX 2.3 cm LVOT Diameter 2.0 cm LA Systolic Diameter LX 2.7 cm 3.0 - 4.0 / 2.7 - 3.8 cm LV Ejection Fraction MOD 4C 67.8 % LV Ejection Fraction 4C AL 67.9 % M-MODE Aortic Root Diameter MM 2.5 cm AV Cusp Separation MM 2.2 cm DOPPLER AV Peak Velocity 126.0 cm/s AV Peak Gradient 6.4 mmHg LVOT Peak Velocity 100.0 cm/s LVOT Peak Gradient 4.0 mmHg AV Area Cont Eq pk 2.5 cm MV Area PHT 5.1 cm Mitral E Point Velocity 73.5 cm/s Mitral A Point Velocity 67.1 cm/s Mitral E to A Ratio 1.1 LV E' Lateral Velocity 9.6 cm/s Mitral E to LV E' Lateral Ratio 7.7 LV E' Septal Velocity 7.9 cm/s Mitral E to LV E' Septal Ratio 9.3 TR Peak Velocity 216.0 cm/s TR Peak Gradient 18.7 mmHg Right Atrial Pressure 10.0 mmHg Pulmonary Artery Systolic Pressu 28.7 mmHg Right Ventricular Systolic Press 28.7 mmHg PV Peak Velocity 89.6 cm/s PV Peak Gradient 3.2 mmHg FINDINGS LEFT VENTRICLE The left ventricular systolic function is normal with an estimated ejection fraction in the range of 65-70%. Normal left ventricular size. Wall thickness is normal. No regional wall motion abnormalities are present. RIGHT VENTRICLE Normal right ventricular size and systolic function. LEFT ATRIUM The left atrial size is normal. RIGHT ATRIUM The right atrial size is normal. ATRIAL SEPTUM Normal atrial septal thickness without atrial level shunting by limited color doppler interrogation. AORTA The aortic root and proximal ascending aorta are normal in size on limited imaging. MITRAL VALVE Structurally normal mitral valve. No mitral valve stenosis or regurgitation. AORTIC VALVE Trileaflet aortic valve. No aortic valve stenosis or regurgitation. TRICUSPID VALVE Structurally normal tricuspid valve. There is trace tricuspid valve regurgitation. Normal estimated pulmonary pressures. PULMONARY VALVE No pulmonary valve regurgitation or stenosis. VESSELS The inferior vena cava is normal in size. PERICARDIUM No pericardial effusion. Rakesh Reyna MD, FACC (Electronically Signed) Final Date:26 August 2017 13:52
== END 2017-08-28 06:24 | disposition left against medical advice (07) | DRG 309 ==
LOC: HOR 15:21 → NEDA 18:03 → NEDH 22:03
PROVIDERS: ADMIT Family Medicine; ATTEND Family Medicine
DX: I48.91 Unspecified atrial fibrillation (principal); N39.0 Urinary tract infection, site not specified; F32.9 Major depressive disorder, single episode, unspecified; R00.0 Tachycardia, unspecified; T43.625A Adverse effect of amphetamines, initial encounter; N20.0 Calculus of kidney; R07.89 Other chest pain; E78.5 Hyperlipidemia, unspecified; E03.9 Hypothyroidism, unspecified; B18.2 Chronic viral hepatitis C; E66.9 Obesity, unspecified; F17.210 Nicotine dependence, cigarettes, uncomplicated; F41.9 Anxiety disorder, unspecified; F90.9 Attention-deficit hyperactivity disorder, unspecified type; Z68.31 Body mass index [BMI] 31.0-31.9, adult; Z82.49 Family history of ischemic heart disease and other diseases of the circulatory system
CPT/HCPCS: 51702; 71045; 74176; 80048; 80053; 80307; 81001; 82550; 82552; 83605; 83690; 83735; 84484; 84703; 85025; 85379; 85610; 85730; 86850; 86900; 86901; 87086; 93005; 93306; 96374; 96375; J0696; J1170; J1885; J2060; J2270; J2405; J7030; J7040

== ENCOUNTER → 2017-09-21 | Day surgery (SDC) | payer OTHER ==
[~2017-09-21] VITALS: Ht 160 cm; Wt 78.6 kg
[~2017-09-21] MED LIST changes: +*MEPERIDINE 25 MG INJ VIAL PERIprocedural Use ONLY ONE; +*PROMETHAZINE 25 MG/ML VIAL PERIprocedural use ONLY ONE; -ADDE30TA PO; -ATOR40TA16 PO; -BUTA1CAP PO; +CHLORHEXIDINE GLUCONATE 2 % 1 PACK (2 CLOTHS) TOPICAL PRN; +DO NOT ADM ANY ANTICOAGULANT DRUGS PRN; -GLEC1TAB PO; +LACTATED RINGER'S 1000 ML IV PRN; +LIDOCAINE HCL 1% PF 5 ML SYRINGE OTHER ONE; +METOPROLOL TARTRATE 25 MG TAB PO PRN; +MIDAZOLAM HCL 2 MG/2 ML VIAL ONE; +MORPHINE SULFATE 8 MG/ML INJ ONE; +ONDANSETRON HCL 4 MG/2 ML VIAL IV ONE; +ONDANSETRON HCL 4 MG/2 ML VIAL IV PUSH PRN; +ONDANSETRON HCL 4 MG/2 ML VIAL ONE; +PHENYLEPH/NS 1000 MCG/10 ML SYR IV ONE; +POVIDONE IODINE 5% (ANTISEPSIS KIT) 4 APPLICATIONS EACH NARE PRN; +PROPOFOL 200 MG/20 ML AMP IV ONE; +SODIUM CHLORID 0.9% 500 ML IV PRN; -ZOFR4TAB PO; +ePHEDrine/NS 25 MG/5 ML SYRINGE IV ONE; +oxyCODONE/ACETAMINOPHEN 5 MG/325 MG TAB PO PRN
--- NOTE | 2017-09-21 09:08 | RADRPT ---
EXAM DATE/TIME: 09/21/2017 09:02 [facility] COMPARISON: ABDOMEN KUB ONLY, August 10, 2017, 6:36. INDICATIONS : Pre-op for right lithotripsy. MEDICAL HISTORY : Hypothyroidism. SURGICAL HISTORY : Cholecystectomy. Left lithotripsy. ENCOUNTER: Initial ACUITY: 1 day PAIN SCORE: 5/10 LOCATION: Right flank FINDINGS: Supine view of the abdomen was performed. The abdominal bowel gas pattern is normal. No abnormal ma sses, or organomegaly is seen. 4 mm calcification in the inferior right kidney is unchanged. Cholecys tectomy clips are stable. The osseous structures are unremarkable. CONCLUSION: 4 mm calcification lower pole right kidney unchanged. Rakesh Jason MD on September 21, 2017 at 9:04 Board Certified Radiologist. This report was verified electronically.
--- NOTE | 2017-09-21 09:58 | PD.OP ---
Operative Report Date of Surgery: Sep 21, 2017 Preoperative Diagnosis: (1) Renal calculus, right Postoperative Diagnosis: (1) Renal calculus, right Procedure: Extracorporeal shockwave lithotripsy right renal calculus Anesthesia: General Surgeon: Roosevelt Jay Visualization Developer(s): None Operation and Findings: Indication for procedure: Case of a pleasant 36-year-old female with a history of a right renal calculus who presents today to undergo right-sided shockwave lithotripsy. Operative procedure in detail: Patient was brought to the operating room suite and placed supine on the lithotripsy table. She was then placed under general anesthesia. After an appropriate timeout was undertaken I proceeded with localizing the patient's right renal calculus with fluoroscopy. She subsequently received extra corporeal shockwave lithotripsy utilizing the Dornier mobile lithotripsy device. The patient received a total of 3000 shocks with a maximum power level setting of 6. At the conclusion of the procedure the stone was spread out significantly consistent with fragmentation. The patient tolerated the procedure without complications and was transferred to the PACU in satisfactory condition. Roosevelt Jay MD Sep 21, 2017 09:58
[2017-09-21 11:30] VITALS: BP 150/92; PULSE 68; RESP 20; TEMP 97.8; O2SAT 100
== END | disposition home or self-care (01) ==
LOC: HSDC 07:09
PROVIDERS: ATTEND Urology
DX: N20.0 Calculus of kidney (principal); E03.9 Hypothyroidism, unspecified
CPT/HCPCS: 00873; 50590; 74018; J2175; J2250; J2270; J2370; J2405; J2550; J3010; J7120